=== PATIENT | female | born 1995 | race Caucasian/White ===

== ENCOUNTER → 2018-09-01 19:09 | Outpatient (CLI) | payer OTHER, SELFPAY ==
[2018-09-01 10:55] VITALS: BMI 25.5
[2018-09-01 22:02] LABS: Chlamydia Trachomatis by PCR Negative (Negative); Neisserai gonorrhoeae by PCR Negative (Negative); Probe Check PASS; Sample Adequacy Control PASS; Specimen Processing Control PASS
[2018-09-03 15:43] LABS: HPV Reflexed? NOT INDICATED
== END ==
PROVIDERS: Referring Provider Nurse Practitioner Women's Health; Visit Provider Nurse Practitioner Women's Health
DX: Z12.4 Encounter for screening for malignant neoplasm of cervix (principal); Z11.3 Encounter for screening for infections with a predominantly sexual mode of transmission
CPT/HCPCS: 87491; 87591; 87624; 88175; G0145

== ENCOUNTER → 2020-11-27 13:43 | Outpatient (CLI) | payer OTHER, SELFPAY ==
[2018-09-01 10:55] VITALS: BMI 25.5
[2020-11-29 22:11] LABS: H.Pylori Breath Test Negative (Negative)
== END ==
PROVIDERS: PCP Family Medicine; Referring Provider Family Medicine; Visit Provider Family Medicine
DX: R10.13 Epigastric pain (principal)
CPT/HCPCS: 83013

== ENCOUNTER → 2022-03-25 | Outpatient (CLI) | payer OTHER, SELFPAY ==
[2022-03-25 12:32] LABS: AST(SGOT) 14 U/L (15-37); Alanine Aminotransfer ALT/SGPT 22 U/L (13-56); Albumin, Serum 4.3 g/dL (3.2-5.0); Alkaline Phosphatase 26 U/L (45-117); Bilirubin, Direct 0.11 mg/dL (0.00-0.30); Cholesterol 115 mg/dL (200); Globulin 3.8 g/dL (2.2-4.2); High Density Lipoprotein 68 mg/dL; Protein, Total 8.1 g/dL (6.4-8.2); Triglycerides 64 mg/dL; Very Low Density Lipoprotein 13 mg/dL (5-40)
== END | disposition home or self-care (01) ==
LOC: MTLAB 10:47
PROVIDERS: PCP Family Medicine; Referring Provider Physician Assistant Medical; Visit Provider Physician Assistant Medical
DX: L70.0 Acne vulgaris (principal)
CPT/HCPCS: 36415; 80061; 80076

== ENCOUNTER → 2022-05-26 | Outpatient (CLI) | payer OTHER, SELFPAY ==
[2022-06-05 14:48] LABS: HPV Reflexed? NOT INDICATED
== END | disposition home or self-care (01) ==
LOC: LABSPEC 16:51
PROVIDERS: PCP Family Medicine; Referring Provider Nurse Practitioner Women's Health; Visit Provider Nurse Practitioner Women's Health
DX: Z12.4 Encounter for screening for malignant neoplasm of cervix (principal)
CPT/HCPCS: 88175; G0145

== ENCOUNTER → 2023-01-28 | Outpatient (CLI) | payer OTHER, SELFPAY ==
[2023-01-28 16:34] LABS: Anion Gap 6 (5-15); BUN 14 mg/dL (7-18); Chloride 106 mmol/L (98-107); Creatinine, Serum 0.88 mg/dL (0.55-1.02); EST Glomerular Filtration Rate 83 mL/min (>60); Est Glom Filt Rate - Afr Amer 101 mL/min (>60); Glucose 128 mg/dL (74-106); Potassium 3.7 mmol/L (3.5-5.1); Sodium Level 139 mmol/L (136-145); Thyroid Stim Hormone (TSH) 1.02 uIU/mL (0.358-3.74)
== END | disposition home or self-care (01) ==
LOC: LAB 14:56
PROVIDERS: PCP Family Medicine; Referring Provider Internal Medicine Cardiovascular Disease; Visit Provider Internal Medicine Cardiovascular Disease
DX: R00.0 Tachycardia, unspecified (principal)
CPT/HCPCS: 36415; 80048; 84443

== ENCOUNTER → 2023-03-10 | Outpatient (CLI) | payer OTHER, SELFPAY ==
[2023-03-10 09:23] LABS: Hematocrit 42.8 % (37-47); Mean Corp Hgb Conc 32.7 g/dL (32-36); Mean Corpuscular Hgb 28.7 pg (27.0-32.0); Mean Corpuscular Volume 87.7 fL (81-99); Mean Platelet Vol. 10.8 fl (6.2-12.0); Platelet Count 303 K/mm3 (150-450); RBC Distribution Width CV 12.3 % (11.6-14.6); RBC Distribution Width SD 39.6 fl (35.1-43.9); Red Blood Count 4.88 M/mm3 (4.2-5.4); White Blood Count 8.2 K/mm3 (4.4-11.0)
[2023-03-10 09:35] LABS: Internal QC Validated? YES +Cl - CLEAR BKGD; Pregnancy, Serum, hCG Quali. NEGATIVE Negative
[2023-03-10 09:37] LABS: Anion Gap 5 (5-15); BUN 13 mg/dL (7-18); BUN/Creat Ratio 14.6 RATIO (10-20); Calcium,Total 9.1 mg/dL (8.5-10.1); Chloride 106 mmol/L (98-107); Creatinine, Serum 0.89 mg/dL (0.55-1.02); EST Glomerular Filtration Rate 82 mL/min (>60); Est Glom Filt Rate - Afr Amer 99 mL/min (>60); Glucose 95 mg/dL (74-106); Potassium 3.7 mmol/L (3.5-5.1); Sodium Level 137 mmol/L (136-145)
--- NOTE | 2023-03-10 17:34 | TILTTABLE_ITS ---
Staff Staff: Sheila Norman Summary Pre Test Resting HR: 100 Pre Test Resting BP: 118/84 Minimum Test HR: 48 Maximum Test HR: 81 Minimum Test BP: 69/37 Maximum Test BP: 124/77 Reason for Test Termination: Dizziness Physician Tilt Table Report Patient's Physicians Primary Care Physician: Stephany Holguin Relocation Associate: Rigoberto Gerber Indications/Diagnosis: Syncope Procedure Comments: Patient was brought to the noninvasive lab in the postabsorptive nonsedated state. Initial heart rate was noted to be sinus rhythm with 100 bpm initial blood pressure was 118/84 mmHg when placed in the head upright tilt table position at 70 degrees. Continuous monitoring was performed. Approximately 5 minutes into the procedure patient's heart rate was noted to drop to a joshua of approximately 48 bpm with blood pressure dropping to 69/37 mmHg complaining of dizziness tightness in the throat and being diaphoretic. The patient was then placed in the supine position after the blood pressure improved somewhat. Patient then became less diaphoretic and warm with blood pressure improving. Summary: Abnormal tilt table test with likely vasovagal presyncopal symptoms.
[2023-03-10 17:39] VITALS: BP 118/84; BP 124/77; BP 69/37
== END | disposition home or self-care (01) ==
PROVIDERS: PCP Family Medicine; Referring Provider Internal Medicine Cardiovascular Disease; Visit Provider Internal Medicine Cardiovascular Disease
DX: R00.0 Tachycardia, unspecified (principal); R42 Dizziness and giddiness; R00.2 Palpitations
CPT/HCPCS: 36415; 80048; 84703; 85027; 93660; J7040; A4216

== ENCOUNTER 2023-10-10 12:14 | Emergency (ER) | payer OTHER, SELFPAY ==
[2023-10-10 12:15] VITALS: BP 138/90; PULSE 137; RESP 22; TEMP 36.6; O2SAT 98; BMI 27.6
--- OUTSIDE RECORDS SUMMARY | 2023-10-10 12:38 | XMS RPT_ITS | CCD ---
Author Name Unknown Address [address] [facility] [address] [place] [address] Organization [facility] Care Team Providers Care Building Service Worker Name Role Phone GWYN TERRY Admitting Unavailable HARRISONGWYN Attending Unavailable GWYN TERRY Primary Care Unavailable ERYN MENDEZNAH Consulting Unavailable PROVIDER, UNKNOWN Consulting Unavailable PROVIDER, UNKNOWN Consulting Unavailable FURFARI, MACIEJ PA-C Admitting Unavaila ble FURFARI, MACIEJ PA-C Attending Unavaila ble FURFARI, MACIEJ PA-C Primary Care Unavaila ble GENNAROEL LORENA Consulting Unavailable PROVIDER, UNKNOWN Consulting Unavailable PROVIDER, UNKNOWN Consulting Unavailable FURFARI, MACIEJ PA-C Admitting Unavaila ble FURFARI, MACIEJ PA-C Attending Unavaila ble FURFARI, MACIEJ PA-C Primary Care Unavaila ble MIEDEL, LORENA Consulting Unavailable PROVIDER, UNKNOWN Consulting Unavailable PROVIDER, UNKNOWN Consulting Unavailable FURFARI, MACIEJ PA-C Admitting Unavaila ble FURFARI, MACIEJ PA-C Attending Unavaila ble FURFARI, MACIEJ PA-C Primary Care Unavaila ble GENNAROEL LORENA Consulting Unavailable PROVIDER, UNKNOWN Consulting Unavailable PROVIDER, UNKNOWN Consulting Unavailable FURFARI, MACIEJ PA-C Admitting Unavaila ble FURFARI, MACIEJ PA-C Attending Unavaila ble FURFARI, MACIEJ PA-C Primary Care Unavaila ble MIEDEL, LORENA Consulting Unavailable PROVIDER, UNKNOWN Consulting Unavailable PROVIDER, UNKNOWN Consulting Unavailable FURFARI, MACIEJ PA-C Admitting Unavaila ble FURFARI, MACIEJ PA-C Attending Unavaila ble FURFARI, MACIEJ PA-C Primary Care Unavaila ble MIEDEL, LORENA Consulting Unavailable PROVIDER, UNKNOWN Consulting Unavailable PROVIDER, UNKNOWN Consulting Unavailable Allergies Allergy Classification Reported Allergen(s) Allergy Type Date of Onset Reaction(s) Facility (1 source) Amoxicillin / Clavulanate Drug Allergy [facility] Repository Results Test Name Value Interpretation Reference Range Facil ity Encounters Encounter Date Encounter Type Care Provider Facility Start: 12-09-2022 End: 12-09-2022 ambulatory MACIEJ PA-C [facility] Start: 11-04-2022 End: 11-04-2022 ambulatory MACIEJ PA-C [facility] Start: 10-04-2022 End: 10-04-2022 ambulatory MACIEJ PA-C [facility] Start: 07-30-2022 End: 07-30-2022 ambulatory MACIEJ PA-C [facility] Start: 07-21-2022 End: 07-21-2022 ambulatory MACIEJ PA-C [facility] Start: 02-14-2022 ambulatory GWYN TERRY [facility] Payers Date Payer Category Payer Unknown [id number] 2.16.84 [id number] 1997 Unknown [id number] 2.16.84 [id number] 1997 Unknown [id number] 2.16.84 [id number] 1997 Unknown [id number] 2.16.84 [id number] 1997 Unknown [id number] 2.16.84 [id number] 1997 Unknown [id number] .16.84 [id number] Unknown [id number] Summary Purpose Family History No Family History Records FoundNo Family History Records Found Advance Directives No Advanced Directives Records FoundNo Advanced Directives Records Found Additional Source Comments INFORMATION SOURCE (unrecogn ized section and content) DATE CREATED AUTHOR AUTHOR'S IVY ALAMO 12/09/2022 [facility] FOR RECORDS PERTAINING TO PATIENTS WHO ARE OR HAVE BEEN ENROLLED IN A CHEMICAL DEPENDENCY/SUBSTANCEABUSE PROGRAM, SOME INFORMATION MAY BE OMITTED. This clinical summary was aggregated from multiple sources. Caution should be exercised in using it in the provision of clinical care. This summary normalizes information from multiple sources, and as a consequence, information in this document may materially change the coding, format and clinical context of patient data. In addition, data may be omitted in some cases. CLINICAL DECISIONS SHOULD BE BASED ON THE PRIMARY CLINICAL RECORDS. [facility] [employer] [facility]. provides no warranty or guarantee of the accuracy or completeness of information in this document.
--- NOTE | 2023-10-10 12:54 | US_ITS ---
HISTORY: Bleeding, cramping, 5 weeks . 09/01/23. TECHNIQUE: Transvaginal pelvic ultrasound was performed. 62 images. COMPARISON: None. FINDINGS: UTERUS: 7.7 x 3.3 x 4 cm. Arcuate appearance. CERVIX: Closed. ENDOMETRIAL COMPLEX: 3 mm in thickness. No intrauterine gestational sac identified. RIGHT OVARY: 2.1 x 2.4 x 3.6 cm with small follicles. Vascular flow demonstrated. No adnexal masses. LEFT OVARY: 1.8 x 2.2 x 4 cm with small follicles. Vascular flow demonstrated. No adnexal masses. FREE FLUID: None. US/Transvaginal w/Preg US IMPRESSION: No intrauterine gestational sac identified. Recommend correlation with serial beta hCG levels and follow-up ultrasound to assess for ectopic or spontaneous miscarriage versus very early intrauterine . Electronically Signed: Yanet Lawrence MD at 13:49 EST ,
--- NOTE | 2023-10-10 12:55 | ED.VIS.FEGU ---
HPI HPI - Female History of Present Illness Chief Complaint: Vag Bld, Preg Narrative Narrative: Patient presents with vaginal bleeding and cramping. Last menstrual period was 01 September which puts her at 5 weeks and 4 days. She is G1, P0. She just started bleeding today. Some cramping. She states the bleeding is just on the heavy side of what a menstrual cycle would be. No tissue. She states is not really cramping much now. She has not been lightheaded or dizzy. I note that her initial vitals showed a pulse of 137. She states she was more emotionally scared coming in here and getting the IV. Her pulse is now normal. She looks very nontoxic. My initial concern was potential ectopic but seeing the patient reduces my concern significantly. PFSH [facility] Medical History Anxiety COVID-19 (~2020) Frequent headaches Tachycardia Home Medications sertraline 25 mg tablet (Zoloft) 25 mg PO DAILY 05/26/22 [History Last Taken Unknown] albuterol sulfate 90 mcg/actuation aerosol inhaler 2 puff inhalation Q4H PRN shortness of breath or wheezing 12/15/22 [History Last Taken Unknown] spironolactone 25 mg tablet 25 mg PO DAILY #30 tabs 03/11/23 [Rx Last Taken Unknown] promethazine 12.5 mg tablet 12.5 mg PO Q6H PRN nausea and vomiting #60 tabs 10/05/23 [Rx Last Taken Unknown] Allergy/AdvReac Type Severity Reaction Status Date / Time amoxicillin [From Augmentin] AdvReac Mild rash Verified 10/10/23 12:15 clavulanic acid AdvReac Mild rash Verified 10/10/23 12:15 [From Augmentin] Family History Mother Cancer, Onset Age: 41 cervical Grandmother Myocardial infarction Uncle Myocardial infarction Surgical History [place] teeth extracted Social History household members: spouse number of children: 0 current occupational status: employed current occupation: [employer] - [employer] Smoking Status: Never smoker alcohol intake: current alcohol intake frequency: holidays/special occasions only substance use type: does not use caffeine: Yes what type of physical activity do you participate in: walking frequency: 1-2 times per week seatbelt use: always do you feel safe at home: Yes additional social history: January 2022- Larry HERNANDEZ ROS ED Constitutional Constitutional ED: Denies chills or fever(s) Eyes Eyes: Denies change in vision Cardiovascular Cardiovascular: Denies chest pain, palpitations or racing heartbeat Respiratory/Chest Respiratory/Chest: Denies cough or dyspnea Gastrointestinal Gastrointestinal: Reports abdominal pain; Denies diarrhea, nausea or vomiting Genitourinary Genitourinary ED: Reports other Details: See history of present illness. ; Denies dysuria, hematuria or urinary frequency Musculoskeletal Musculoskeletal: Denies myalgias Integumentary Denies abscess Neurologic Neurologic: Denies headache(s) Endocrine Endocrinology: Denies polydipsia or polyuria Hematologic/Lymphatic Hematologic/Lymphatic: Denies easy bleeding or easy bruising Allergic/Immunologic Allergic/Immunologic ED: Denies urticaria EXAM Physical Exam Narrative Exam Narrative: CONSTITUTIONAL: Patient is nontoxic in appearance. The patient looks comfortable. She does not look pale or toxic. She is smiling pleasant. HEENT: No notable trauma. Mucous membranes moist. EYES: No conjunctival injection. No pallor. CARDIOVASCULAR: Regular rate currently at about 75 or 80. Regular rhythm. No notable murmur. No JVD. RESPIRATORY: No respiratory distress. Breathing is unlabored. No wheezes. No rhonchi. No rales. No pain with a deep breath. GASTROINTESTINAL: Not distended. Bowel sounds are normal. No tenderness. No guarding. No rebound. No palpable mass. No bruit. Overall her abdomen is actually quite benign GENITOURINARY: No tenderness over the bladder. No low abdomen or pelvic tenderness. No CVA tenderness. MUSCULOSKELETAL: Atraumatic. No peripheral edema. No cord. No tenderness along the deep venous system. No asymmetry. NEUROLOGICAL: Patient is alert and appropriate. No focal deficit noted. SKIN: No noted rashes. No diaphoresis. No pallor. No petechiae. PSYCHIATRIC: Patient is calm. Mood is appropriate. Const Vital Signs: 10/10/23 12:15 10/10/23 13:10 Temperature 98 F Temperature Source Temporal Pulse Rate 137 H 88 Respiratory Rate 22 H 14 Blood Pressure 138/90 H 118/77 Blood Pressure Mean 106 90 Pulse Ox 98 98 Oxygen Delivery Method Room Air Room Air MDM MDM MDM Narrative Medical decision making narrative: Repeat vitals show normal heart rate consistent with the exam. Patient's CBC is normal including hemoglobin and platelets. Patient's electrolytes are normal other than minimal elevation of chloride which is nonspecific and minimal elevation of glucose. Quantitative beta-hCG is only 59. Ultrasound showed no gestational sac. This is concerning for either miscarriage or possible ectopic. But the patient does not have symptoms findings consistent with ectopic. Dr. Benavidez called in about her. She had already looked at the ultrasound. She has a repeat quant for Thursday. Plan will be to get her home with close follow-up. Lab Data Attestation: I reviewed the patient's lab results. Labs: Laboratory Results - last 24 hr 10/10/23 13:03 WBC 10.8 RBC 4.82 Hgb 13.8 Hct 42.2 MCV 87.6 MCH 28.6 MCHC 32.7 RDW Std Deviation 41.2 RDW Coeff of Andrew 13.0 Plt Count 305 MPV 10.5 Immature Gran % (Auto) 0.200 Neut % (Auto) 72.3 H Lymph % (Auto) 21.1 [place] % (Auto) 5.5 Eos % (Auto) 0.6 Baso % (Auto) 0.3 Absolute Neuts (auto) 7.8 H Absolute Lymphs (auto) 2.27 Nucleated RBC % 0 Sodium 139 Potassium 4.1 Chloride 109 H Carbon Dioxide 25.0 Anion Gap 5 BUN 11 Creatinine 0.86 Estim Creat Clear Calc 104.26 Est GFR (MDRD) Af Amer 102 Est GFR (MDRD) Non-Af 84 BUN/Creatinine Ratio 12.7 Glucose 117 H Calcium 9.4 HCG, Quant 59 H Radiography Diagnostic Testing: Clinical Impression(s) from Imaging Studies Obstetrics Ultrasound 10/10/23 12:54 IMPRESSION: No intrauterine gestational sac identified. Recommend correlation with serial beta hCG levels and follow-up ultrasound to assess for ectopic or spontaneous miscarriage versus very early intrauterine . Electronically Signed: Yanet Lawrence MD at 13:49 EST , Discharge Plan Triage Chief Complaint: Vag Bld, Preg ED Provider: Samuel Patterson Dx/Rx/DC Orders Clinical Impression: Threatened , Vaginal bleeding Instructions: Miscarriage Threatened Prescriptions: No Action sertraline [Zoloft] 25 mg tablet 25 mg PO DAILY albuterol sulfate 90 mcg/actuation HFA aerosol inhaler 2 puff inhalation Q4H PRN (Reason: shortness of breath or wheezing) Patient Comments: INHALE 2 PUFFS BY MOUTH EVERY 4 HOURS NEEDED spironolactone 25 mg tablet 25 mg PO DAILY Qty: 30 11RF promethazine 12.5 mg tablet 12.5 mg PO Q6H PRN (Reason: nausea and vomiting) Qty: 60 2RF Primary Care Provider: Stephany Holguin Referrals: Stephany Holguin MD [Primary Care Provider] - Radha Mccloud DO [Med Staff - Active Staff] - 3-5 Days Activity Restrictions/Additional Instructions: Your doctor has ordered a repeat blood test on Thursday. Disposition Disposition: Home, Self Care
[2023-10-10 13:10] VITALS: BP 118/77; PULSE 88; RESP 14; O2SAT 98
[2023-10-10 13:15] LABS: Absolute Lymphocyte Count 2.27 X10^3/uL (0.83-4.51); Absolute Neutrophil Count 7.8 X10^3/uL (2.0-7.7); Basophil# 0.03 X10^3/uL; Basophil% 0.3 % (0-1); Eosinophil# 0.06 X10^3/uL; Eosinophils% 0.6 % (0-5); Hematocrit 42.2 % (37-47); Hemoglobin 13.8 g/dL (12.0-15.0); Lymphocyte # 2.27 X10^3/ul (0.83-4.51); Lymphocyte % 21.1 % (19-41); Mean Corp Hgb Conc 32.7 g/dL (32-36); Mean Corpuscular Hgb 28.6 pg (27.0-32.0); Mean Corpuscular Volume 87.6 fL (81-99); Mean Platelet Vol. 10.5 fl (6.2-12.0); Monocyte# 0.59 X10^3/uL; Monocyte% 5.5 % (0-10); NRBC Flagged by Analyzer 0 % (0-5); Neutrophil # 7.79 X10^3/uL (2.7-7.7); Neutrophil % 72.3 % (47-70); Platelet Count 305 K/mm3 (150-450); RBC Distribution Width SD 41.2 fl (35.1-43.9); Red Blood Count 4.82 M/mm3 (4.2-5.4); White Blood Count 10.8 K/mm3 (4.4-11.0)
[2023-10-10 13:28] LABS: Anion Gap 5 (5-15); BUN 11 mg/dL (7-18); BUN/Creat Ratio 12.7 RATIO (10-20); Calcium,Total 9.4 mg/dL (8.5-10.1); Chloride 109 mmol/L (98-107); Creatinine, Serum 0.86 mg/dL (0.55-1.02); EST Glomerular Filtration Rate 84 mL/min (>60); Est Glom Filt Rate - Afr Amer 102 mL/min (>60); Estimated Creatinine Clearance 104.26 ml/min; Glucose 117 mg/dL (74-106); Potassium 4.1 mmol/L (3.5-5.1); Sodium Level 139 mmol/L (136-145)
[2023-10-10 13:33] LABS: hCG Titer Quant., Serum 59 mIU/mL (1-3)
== END 2023-10-10 14:40 | disposition home or self-care (01) ==
PROVIDERS: Emergency Provider Emergency Medicine; PCP Family Medicine; Visit Provider Emergency Medicine
DX: O20.0 Threatened abortion (principal); R10.2 Pelvic and perineal pain; Z79.899 Other long term (current) drug therapy; Z3A.01 Less than 8 weeks gestation of pregnancy
CPT/HCPCS: 76817; 80048; 84702; 85025; 86900; 86901; 99282; A4216

== ENCOUNTER → 2023-10-12 | Outpatient (CLI) | payer OTHER, SELFPAY ==
--- OUTSIDE RECORDS SUMMARY | 2023-10-12 11:23 | XMS RPT_ITS | CCD ---
Author Name Unknown Address [address] [facility] [address] [place] [address] Organization [facility] Care Team Providers Care Supervisor Pipe Finishing Name Role Phone GWYN TERRY Admitting Unavailable [...] (1 source) Amoxicillin / Clavulanate Drug Allergy [facility] Repository Results Test Name Value Interpretation Reference Range Facil ity Encounters Encounter Date Encounter Type Care Provider Facility Start: 12-09-2022 End: 12-09-2022 ambulatory MACIEJ PA-C [facility] Start: 11-04-2022 End: 11-04-2022 ambulatory MACIEJ PA-C [facility] Start: 10-04-2022 End: 10-04-2022 ambulatory MACIEJ PA-C [facility] Start: 07-30-2022 End: 07-30-2022 ambulatory MACIEJ PA-C [facility] Start: 07-21-2022 End: 07-21-2022 ambulatory MACIEJ PA-C [facility] Start: 02-14-2022 ambulatory GWYN TERRY [facility] Payers Date Payer Category Payer Unknown [id number] 2.16.84 [id number] 1997 Unknown [id number] 2.16.84 [id number] 1997 Unknown [id number] 2.16.84 [id number] 1997 Unknown [id number] 2.16.84 [id number] 1997 Unknown [id number] 2.16.84 [id number] 1997 Unknown [id number] .16.84 [id number] Unknown [id number] Summary Purpose Family History No Family History Records FoundNo Family History Records Found Advance Directives No Advanced Directives Records FoundNo Advanced Directives Records Found Additional Source Comments INFORMATION SOURCE (unrecogn ized section and content) DATE CREATED AUTHOR AUTHOR'S IVY ALAMO 12/09/2022 [facility] FOR RECORDS PERTAINING TO PATIENTS WHO ARE [...] BE BASED ON THE PRIMARY CLINICAL RECORDS. [facility] [employer] [facility]. provides no warranty or guarantee of the accuracy or completeness of information in this document.
[2023-10-12 14:17] LABS: hCG Titer Quant., Serum 17 mIU/mL (1-3)
== END | disposition home or self-care (01) ==
LOC: LAB 11:04
PROVIDERS: PCP Family Medicine; Referring Provider Obstetrics & Gynecology; Visit Provider Obstetrics & Gynecology
DX: O20.0 Threatened abortion (principal); Z3A.00 Weeks of gestation of pregnancy not specified
CPT/HCPCS: 36415; 84702

== ENCOUNTER → 2023-10-22 | Outpatient (CLI) | payer OTHER, SELFPAY ==
[2023-10-22 17:17] LABS: hCG Titer Quant., Serum < 1 mIU/mL (1-3)
== END | disposition home or self-care (01) ==
LOC: LAB 15:49
PROVIDERS: PCP Family Medicine; Referring Provider Nurse Practitioner Women's Health; Visit Provider Nurse Practitioner Women's Health
DX: O20.0 Threatened abortion (principal); Z3A.00 Weeks of gestation of pregnancy not specified
CPT/HCPCS: 36415; 84702

== ENCOUNTER → 2024-02-25 | Outpatient (CLI) | payer OTHER, SELFPAY ==
--- NOTE | 2024-02-25 12:48 | US_ITS ---
STUDY: FIRST TRIMESTER OBSTETRICAL ULTRASOUND REASON FOR EXAM: Female, 28 years old cramping with spotting LMP: TECHNIQUE: Transvaginal TECHNICAL QUALITY: Adequate. PRIOR ULTRASOUND: None. FINDINGS: There is visualization of a single gestational sac in a normal intrauterine position. The mean sac diameter (MSD) measures 1.12 cm, indicating an estimated gestational age (EGA) of 5 weeks, 6 days. The gestational sac shape is within normal limits. There is a visualized yolk sac. The yolk sac measures 3.8 mm. The placenta is non-visualized. There is visualization of a live embryo. The crown-rump length (CRL) measures 1.8 mm, indicating an estimated gestational age (EGA) of 5 weeks, 6 days. There is demonstrated cardiac activity with a heart rate of 108 bpm. The estimated gestation age (EGA) by LMP is 6 weeks, 3 days. The estimated date of delivery (CHAPARRO) by LMP is October 17, 2024. The estimated gestation age (EGA) by US is 5 weeks, 6 days. The estimated date of delivery (CHAPARRO) by US is October 21, 2024. The uterus measures 8.1 x 5.8 x 4.1 cm. There is no demonstrated uterine fibroid. The cervix is closed. The right ovary measures 3.8 x 2.2 x 2.8 cm. There is a small cyst measuring 1.2 x 1.1 x 1 cm possibly corpus luteum There is no visualized right adnexal mass or complex lesion. Normal left ovary not visualized due to bowel gas artifact. No cystic or solid adnexal mass There is no fluid in the cul de sac. US/Transvaginal w/Preg US IMPRESSION: Viable intrauterine gestation approximately 5-6 weeks gestational age. No significant abnormality Electronically Signed: Viktor García MD at 16:08 EDT ,
== END | disposition home or self-care (01) ==
PROVIDERS: PCP Family Medicine; Referring Provider Obstetrics & Gynecology; Visit Provider Obstetrics & Gynecology
DX: O26.859 Spotting complicating pregnancy, unspecified trimester (principal); Z3A.00 Weeks of gestation of pregnancy not specified
CPT/HCPCS: 76817

== ENCOUNTER → 2024-03-31 | Outpatient (CLI) | payer OTHER, SELFPAY ==
[2024-03-31 10:48] LABS: Absolute Lymphocyte Count 1.94 X10^3/uL (0.83-4.51); Absolute Neutrophil Count 8.5 X10^3/uL (2.0-7.7); Basophil# 0.04 X10^3/uL; Basophil% 0.4 % (0-1); Eosinophil# 0.06 X10^3/uL; Eosinophils% 0.5 % (0-5); Hematocrit 39.6 % (37-47); Hemoglobin 13.2 g/dL (12.0-15.0); Lymphocyte # 1.94 X10^3/ul (0.83-4.51); Lymphocyte % 17.2 % (19-41); Mean Corp Hgb Conc 33.3 g/dL (32-36); Mean Corpuscular Hgb 28.3 pg (27.0-32.0); Mean Corpuscular Volume 84.8 fL (81-99); Mean Platelet Vol. 10.5 fl (6.2-12.0); Monocyte# 0.66 X10^3/uL; Monocyte% 5.8 % (0-10); NRBC Flagged by Analyzer 0 % (0-5); Neutrophil # 8.53 X10^3/uL (2.7-7.7); Neutrophil % 75.6 % (47-70); Platelet Count 276 K/mm3 (150-450); RBC Distribution Width CV 12.5 % (11.6-14.6); RBC Distribution Width SD 37.7 fl (35.1-43.9); Red Blood Count 4.67 M/mm3 (4.2-5.4); White Blood Count 11.3 K/mm3 (4.4-11.0)
[2024-03-31 11:54] LABS: HIV - WCH Non-Reactive (Nonreactive); Hepatitis B Surface Antigen Non-Reactive (Nonreactive); Hepatitis C Antibody Non-Reactive (Nonreactive); Rubella IgG Reactive (Nonreactive); Syphilis Antibodies Non-reactive
[2024-04-04 03:06] LABS: Chlamydia By Nucleic Acid AMP Negative (Negative); Gonococcus By Nucleic Acid AMP Negative (Negative)
== END | disposition home or self-care (01) ==
PROVIDERS: PCP Family Medicine; Referring Provider Advanced Practice Midwife; Visit Provider Advanced Practice Midwife
DX: O09.90 Supervision of high risk pregnancy, unspecified, unspecified trimester (principal); Z3A.00 Weeks of gestation of pregnancy not specified
CPT/HCPCS: 36415; 85025; 86703; 86762; 86780; 86803; 86850; 86900; 86901; 87340; 87491; 87591

== ENCOUNTER → 2024-07-22 | Outpatient (CLI) | payer OTHER, SELFPAY ==
[2024-07-22 13:12] LABS: Absolute Lymphocyte Count 1.83 X10^3/uL (0.83-4.51); Absolute Neutrophil Count 9.7 X10^3/uL (2.0-7.7); Basophil# 0.02 X10^3/uL; Basophil% 0.2 % (0-1); Eosinophil# 0.13 X10^3/uL; Hematocrit 34.9 % (37-47); Hemoglobin 11.9 g/dL (12.0-15.0); Lymphocyte # 1.83 X10^3/ul (0.83-4.51); Lymphocyte % 14.7 % (19-41); Mean Corp Hgb Conc 34.1 g/dL (32-36); Mean Corpuscular Hgb 29.2 pg (27.0-32.0); Mean Corpuscular Volume 85.7 fL (81-99); Mean Platelet Vol. 10.9 fl (6.2-12.0); Monocyte# 0.69 X10^3/uL; Monocyte% 5.5 % (0-10); NRBC Flagged by Analyzer 0 % (0-5); Neutrophil # 9.72 X10^3/uL (2.7-7.7); Neutrophil % 77.8 % (47-70); Platelet Count 286 K/mm3 (150-450); RBC Distribution Width CV 13.1 % (11.6-14.6); RBC Distribution Width SD 40.3 fl (35.1-43.9); Red Blood Count 4.07 M/mm3 (4.2-5.4); White Blood Count 12.5 K/mm3 (4.4-11.0)
[2024-07-22 13:36] LABS: Glucose Challenge Gest 1H 50g 135 mg/dL (70-140)
[2024-07-22 14:08] LABS: HIV - WCH Non-Reactive (Nonreactive); Syphilis Antibodies Non-reactive
== END | disposition home or self-care (01) ==
LOC: LAB 12:55
PROVIDERS: PCP Family Medicine; Referring Provider Obstetrics & Gynecology; Visit Provider Obstetrics & Gynecology
DX: O09.90 Supervision of high risk pregnancy, unspecified, unspecified trimester (principal); Z13.1 Encounter for screening for diabetes mellitus; Z3A.00 Weeks of gestation of pregnancy not specified
CPT/HCPCS: 36415; 82950; 85025; 86703; 86780

== ENCOUNTER → 2024-08-04 | Outpatient (CLI) | payer OTHER, SELFPAY ==
[2024-08-04 07:53] LABS: Bedside Glucose 89 mg/dL (74-106)
[2024-08-04 08:04] LABS: Glucose GTT-Gestation. Fasting 91 mg/dL (<105)
[2024-08-04 09:12] LABS: Glucose GTT-Gestational 1 Hr 165 mg/dL (<190)
[2024-08-04 10:11] LABS: Glucose GTT-Gestational 2 Hr 144 mg/dL (<165)
[2024-08-04 11:02] LABS: Glucose GTT-Gestational 3 Hr 60 L (<145)
== END | disposition home or self-care (01) ==
LOC: LAB 07:24
PROVIDERS: PCP Family Medicine; Referring Provider Registered Nurse; Visit Provider Registered Nurse
DX: O99.810 Abnormal glucose complicating pregnancy (principal); Z3A.27 27 weeks gestation of pregnancy
CPT/HCPCS: 36415; 82951; 82952; 82962

== ENCOUNTER → 2024-08-09 | Outpatient (CLI) | payer OTHER, SELFPAY ==
[2024-08-09 15:02] LABS: Absolute Neutrophil Count 14.4 X10^3/uL (2.0-7.7); Basophil# 0.05 X10^3/uL; Basophil% 0.3 % (0-1); Eosinophil# 0.19 X10^3/uL; Hematocrit 37.7 % (37-47); Hemoglobin 12.5 g/dL (12.0-15.0); Lymphocyte % 13.9 % (19-41); Mean Corp Hgb Conc 33.2 g/dL (32-36); Mean Corpuscular Hgb 28.6 pg (27.0-32.0); Mean Corpuscular Volume 86.3 fL (81-99); Mean Platelet Vol. 10.8 fl (6.2-12.0); Monocyte# 1.18 X10^3/uL; Monocyte% 6.3 % (0-10); NRBC Flagged by Analyzer 0 % (0-5); Neutrophil # 14.44 X10^3/uL (2.7-7.7); Neutrophil % 77.2 % (47-70); Platelet Count 310 K/mm3 (150-450); RBC Distribution Width CV 13.2 % (11.6-14.6); Red Blood Count 4.37 M/mm3 (4.2-5.4); White Blood Count 18.7 K/mm3 (4.4-11.0)
[2024-08-09 15:16] LABS: ALB/GLOB Ratio 0.7 RATIO (0.9-2.4); AST(SGOT) 14 U/L (15-37); Alanine Aminotransfer ALT/SGPT 25 U/L (13-56); Albumin, Serum 3.2 g/dL (3.2-5.0); Alkaline Phosphatase 51 U/L (45-117); Anion Gap 6 (5-15); BUN 13 mg/dL (7-18); BUN/Creat Ratio 19.9 RATIO (10-20); Calcium,Total 9.4 mg/dL (8.5-10.1); Chloride 107 mmol/L (98-107); Creatinine, Serum 0.65 mg/dL (0.55-1.02); EST Glomerular Filtration Rate 115 mL/min (>60); Est Glom Filt Rate - Afr Amer 140 mL/min (>60); Globulin 4.3 g/dL (2.2-4.2); Glucose 90 mg/dL (74-106); Potassium 3.8 mmol/L (3.5-5.1); Protein, Total 7.5 g/dL (6.4-8.2); Sodium Level 136 mmol/L (136-145)
[2024-08-09 15:20] LABS: Protein, Urine (Random) 11.6 mg/dL (<11.9); Protein:Creat Ratio 161 mg/g CRE (0-200)
== END | disposition home or self-care (01) ==
LOC: BWCLAB 14:23
PROVIDERS: PCP Family Medicine; Referring Provider Obstetrics & Gynecology; Visit Provider Obstetrics & Gynecology
DX: O16.3 Unspecified maternal hypertension, third trimester (principal); Z3A.00 Weeks of gestation of pregnancy not specified
CPT/HCPCS: 36415; 80053; 82570; 84156; 85025

== ENCOUNTER → 2024-09-08 | Outpatient (CLI) | payer OTHER, SELFPAY ==
[2024-09-08 11:16] LABS: Absolute Lymphocyte Count 1.81 X10^3/uL (0.83-4.51); Absolute Neutrophil Count 10.1 X10^3/uL (2.0-7.7); Basophil# 0.03 X10^3/uL; Basophil% 0.2 % (0-1); Eosinophil# 0.14 X10^3/uL; Eosinophils% 1.1 % (0-5); Hematocrit 37.7 % (37-47); Hemoglobin 12.1 g/dL (12.0-15.0); Lymphocyte # 1.81 X10^3/ul (0.83-4.51); Lymphocyte % 14.1 % (19-41); Mean Corp Hgb Conc 32.1 g/dL (32-36); Mean Corpuscular Volume 87.3 fL (81-99); Mean Platelet Vol. 11.8 fl (6.2-12.0); Monocyte# 0.71 X10^3/uL; Monocyte% 5.5 % (0-10); NRBC Flagged by Analyzer 0 % (0-5); Neutrophil # 10.06 X10^3/uL (2.7-7.7); Neutrophil % 78.3 % (47-70); Platelet Count 278 K/mm3 (150-450); RBC Distribution Width CV 13.2 % (11.6-14.6); RBC Distribution Width SD 41.1 fl (35.1-43.9); Red Blood Count 4.32 M/mm3 (4.2-5.4); White Blood Count 12.9 K/mm3 (4.4-11.0)
[2024-09-08 11:19] LABS: Protein, Urine (Random) 19.6 mg/dL (<11.9); Protein:Creat Ratio 202 mg/g CRE (0-200)
[2024-09-08 11:24] LABS: ALB/GLOB Ratio 0.7 RATIO (0.9-2.4); AST(SGOT) 7 U/L (15-37); Alanine Aminotransfer ALT/SGPT 21 U/L (13-56); Albumin, Serum 2.8 g/dL (3.2-5.0); Alkaline Phosphatase 75 U/L (45-117); Anion Gap 7 (5-15); BUN 11 mg/dL (7-18); Calcium,Total 9.4 mg/dL (8.5-10.1); Chloride 106 mmol/L (98-107); Creatinine, Serum 0.65 mg/dL (0.55-1.02); EST Glomerular Filtration Rate 117 mL/min (>60); Est Glom Filt Rate - Afr Amer 141 mL/min (>60); Globulin 4.2 g/dL (2.2-4.2); Glucose 122 mg/dL (74-106); Potassium 3.6 mmol/L (3.5-5.1); Sodium Level 138 mmol/L (136-145)
== END | disposition home or self-care (01) ==
LOC: BWCLAB 08:58
PROVIDERS: PCP Family Medicine; Referring Provider Nurse Practitioner Women's Health; Visit Provider Nurse Practitioner Women's Health
DX: O16.3 Unspecified maternal hypertension, third trimester (principal); Z3A.00 Weeks of gestation of pregnancy not specified
CPT/HCPCS: 36415; 80053; 82570; 84156; 85025

== ENCOUNTER → 2024-09-20 | Outpatient (CLI) | payer OTHER, SELFPAY | END | disposition home or self-care (01) | LOC: LABSPEC 15:34 | PROVIDERS: PCP Family Medicine; Referring Provider Obstetrics & Gynecology; Visit Provider Obstetrics & Gynecology | DX: O09.93 Supervision of high risk pregnancy, unspecified, third trimester (principal); Z3A.00 Weeks of gestation of pregnancy not specified | CPT/HCPCS: 87081 ==

== ENCOUNTER → 2024-09-22 | Outpatient (CLI) | payer OTHER, SELFPAY ==
--- NOTE | 2024-09-22 12:35 | US_ITS ---
HISTORY: small for gestational age/ growth. TECHNIQUE: Transabdominal pelvic ultrasound was performed. 49 images. COMPARISON: 02/25/2024. FINDINGS: INTRAUTERINE GESTATION(s): Single. PRESENTATION: Cephalic. HEART MOTION: 133 bpm. PLACENTA: Posterior, grade one. Limited evaluation due to positioning and location. CERVIX: Not well visualized. AMNIOTIC FLUID INDEX (EULALIO): 14.4 cm. Maximum vertical pocket 5.3 biometry- BIPARIETAL DIAMETER: 8.8 cm, corresponding to 35 weeks 5 days. HEAD CIRCUMFERENCE: 32 cm, corresponding to 36 weeks 0 days. ABDOMINAL CIRCUMFERENCE: 32.8 cm, corresponding to 36 weeks 5 days. FEMUR LENGTH: 7 cm, corresponding to 36 weeks 0 days. ESTIMATED GESTATIONAL AGE: 35 weeks 6 days. ESTIMATED DUE DATE (CHAPARRO): 10/21/2024. ESTIMATED WEIGHT: 2938 g corresponding to 53rd percentile. US/OB Limited With Biometrics IMPRESSION: Single living intrauterine with an estimated gestational age of 35 weeks 6 days. Electronically Signed: Yanet Lawrence MD at 13:12 EST ,
== END | disposition home or self-care (01) ==
PROVIDERS: PCP Family Medicine; Referring Provider Obstetrics & Gynecology; Visit Provider Obstetrics & Gynecology
DX: O26.843 Uterine size-date discrepancy, third trimester (principal); Z3A.36 36 weeks gestation of pregnancy
CPT/HCPCS: 76816

== ENCOUNTER 2024-10-24 02:10 | Inpatient (IN) | payer OTHER, SELFPAY ==
[2024-10-24] VITALS (43 sets, daily range): BP systolic 88–148; BP diastolic 59–104; PULSE 70–130; RESP 14–17; TEMP 36.1–36.9; O2SAT 97–98; BMI 34.4
[2024-10-24] MEDS: 0.9% Saline Lock 10 ML Syringe IV ×3 (02:39→12:38)
[2024-10-24 02:41] LABS: Absolute Lymphocyte Count 1.83 X10^3/uL (0.83-4.51); Basophil# 0.06 X10^3/uL; Basophil% 0.3 % (0-1); Eosinophil# 0.06 X10^3/uL; Eosinophils% 0.3 % (0-5); Hematocrit 38.8 % (37-47); Lymphocyte # 1.83 X10^3/ul (0.83-4.51); Lymphocyte % 8.2 % (19-41); Mean Corp Hgb Conc 33.5 g/dL (32-36); Mean Corpuscular Hgb 28.4 pg (27.0-32.0); Mean Corpuscular Volume 84.7 fL (81-99); Mean Platelet Vol. 11.6 fl (6.2-12.0); Monocyte# 1.22 X10^3/uL; Monocyte% 5.5 % (0-10); NRBC Flagged by Analyzer 0 % (0-5); Neutrophil # 18.99 X10^3/uL (2.7-7.7); Platelet Count 245 K/mm3 (150-450); RBC Distribution Width CV 14.2 % (11.6-14.6); RBC Distribution Width SD 43.8 fl (35.1-43.9); Red Blood Count 4.58 M/mm3 (4.2-5.4); White Blood Count 22.3 K/mm3 (4.4-11.0)
[2024-10-24 03:17] LABS: Syphilis Antibodies Non-reactive
[2024-10-24 07:02] LABS: ROM Internal Control Test YES-OK TO RESULT pt. (Internal QC)
[2024-10-24 07:03] LABS: ROM Patient Test POSITIVE (Negative); Record Kit Lot#, ROM+ K2871
--- NOTE | 2024-10-24 07:06 | HP.PCM.OB_ITS ---
HPI - General General Date of Admission: 10/24/24 Date of Service: 10/24/24 HPI Narrative IRMA TEJADA, is a 29 F who presents to unit in active labor. 41.0 weeks. desires unmedicated Maternal Data Information CHAPARRO Calculator Estimated Delivery Date Method Current WG Current Estimate 10/17/24 Ultrasound #1 41w 0d Other Estimates 10/17/24 LMP (Certain) 41w 0d Final CHAPARRO: 10/17/24 Final CHAPARRO Source: US >20 weeks Gestational age: 41.0 PFSH PFSH Medical History (Updated 10/24/24 @ 07:08 by Christina Jimenes CNM) Depression Spontaneous Frequent headaches Tachycardia COVID-19 (~2020) Anxiety Home Medications ?Medication ?Instructions ?Recorded ?Last Taken ?Type multivitamin no.47-iron fum 27 1 cap PO DAILY pregnanc y 03/22/24 10/23/24 20:00 History mg-folate no.1 1 mg-dha 300 mg 1 cap capsule (PNV-DHA) promethazine 12.5 mg tablet 12.5 mg PO Q6H PRN pregnan cy 03/31/24 Unknown History sertraline 25 mg tablet (Zoloft) 25 mg PO DAILY anxiet y #30 tabs 10/10/24 10/23/24 20:00 Rx 25 mg choline 500 mg tablet 500 mg PO DAILY 10/23/24 20:00 History 500 mg omega 7-olw-rwu-fish oil 300 1 cap PO DAILY 10/24/24 10/23/24 20:00 History mg-1,000 mg capsule (Fish Oil) 1 cap Allergy/AdvReac Type Severity Reaction Status Date / Time amoxicillin (From Augmentin) AdvReac Mild rash Verified 10/24/24 01:44 clavulanic acid (From AdvReac Mild rash Verified 10/24/24 01:44 Augmentin) Family History Mother Cancer, Onset Age: 41 cervical Grandmother Myocardial infarction Uncle Myocardial infarction Brother , ended own life No problems noted. 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 pets and animals: Yes (Avoid litterbox) pets and animals: cat(s) and dog(s) history of recent travel: No sexually active: Yes Smoking Status: Never smoker alcohol intake: current alcohol intake frequency: holidays/special occasions only details: Not while substance use type: does not use well-balanced diet: daily or most days caffeine: Yes (occasional) Type: carbonated beverages and coffee eating out: 1-3 times/week during the past year weight has: remained stable what type of physical activity do you participate in: walking frequency: 1-2 times per week cielo/caodaism: Mormon seatbelt use: always do you feel safe at home: Yes additional social history: January 2022- Larry History 2 Elective abortions Hx Para 0 Spontaneous abortions 1 Hx # Term Pregnancies Ectopic pregnancies Hx # Pregnancies Multiple births # of living children 0 Past Pregnancies Del. Date Name GA/Weeks Outcome Route Bth Weight Infant Gen Labor Lgth Anesthesia Del Locatn Provider FOB 10/03/23 spontaneous Visit Details Expected Delivery Route/Plan Labor Preferences- CB/BF classes: no labor support person: Larry labor intervention preferences: [] pain management options preferred: epidural if requested cut cord/dad catch: yes : yes PP control planned: discussed discussed possible routes of delivery and associated risks: [] special requests: [] Plans Covid status: [] Flu vaccine: declines Tdap vaccine: [] Rhogam: na LARC form signed: yes Problem list reviewed and updated with the most current plan of care details and appropriate orders placed. Relevant counseling for the gestational age provided. Continue routine care and follow up unless otherwise noted in visit notes/problem list details OB Flowsheet Initial Weight: 169 lb 3.2 oz Date -?-?-?-?-?-?-?-?-?-?-?-?- EGA Weight BP Urine Prot -?-?-?-?-?-?-?-?-?-?-?-?- Glucose FHR FuHt Pres Dilation -?-?-?-?-?-?-?-?-?-?-?-?- Effaced St Visit Note 03/31/24 -?-?-?-?-?-?-?-?-?-?-?-?- 11w 3d 169 lb 3.2 oz (+0 oz) 133/87 -?-?-?-?-?-?-?-?-?-?-?-?- 163 -?-?-?-?-?-?-?-?-?-?--?-?- KW-42mm, Cons wi th dates. Declines NIPT at this time. Brother recently-suicide. seeing counselor for this. 04/28/24 -?-?-?-?-?-?-?-?-?-?-?-?- 15w 3d 169 lb 8 oz (+4.8 oz) 132/85 Negative -?-?-?-?-?-?-?-?-?-?-?-?- Negative 150 -?-?-?-?-?-?-?-?-?-?-?-?- KW- work in for . no vb/cramping. requesting to start zoloft. struggling with loss of her brother. does see counselor. 05/31/24 -?-?-?-?-?-?-?-?-?-?-?-?- 20w 1d 173 lb 4 oz (+4 lb 0.8 oz) 126/84 Negative -?-?-?-?-?-?-?-?-?-?-?-?- Negative 137 -?-?-?-?-?-?-?-?-?-?-?-?- JV- doing better since starting zoloft. (brother's autopsy came back last week an confirmed suicide) anatomy done today, results pending. 06/20/24 -?-?-?-?-?-?-?-?-?-?-?-?- 23w 0d 176 lb 8 oz (+7 lb 4.8 oz) 123/87 Negative -?-?-?-?-?-?-?-?-?-?-?-?- Negative 163 -?-?-?-?-?-?-?-?-?-?-?-?- JV- no lof, vagi nal bleeding, or dec fm. no complaints. doing well. family is stable but worried about the upcoming holidays since her brother's . GCT next visit. she declines flu shot. 07/22/24 -?-?-?-?-?-?-?-?-?-?-?-?- 27w 4d 188 lb 8 oz (+19 lb 4.8 oz) 126/80 Negative -?-?-?-?-?-?-?-?-?-?-?-?- Negative 151 28 -?-?-?-?-?-?-?-?-?-?-?-?- LC-no vb/ctx/lof . good fm. glucose 135. will obtain 3 hour. 08/09/24 -?-?-?-?-?-?-?-?-?-?-?-?- 30w 1d 197 lb (+27 lb 12.8 oz) 141/91 133/97 121/82 Negative -?-?-?-?-?-?-?-?-?-?-?-?- Negative 150 30 -?-?-?-?-?-?-?-?-?-?-?-?- SM- no vb lof go od fm no regular ctx SM- no vb lof good fm no reg ular ctx. checking serial bps and nst, stat labs here in office to triage. SM- no vb lof good fm no reg ular ctx. checking serial bps and nst, stat labs here in office to triage. repeat bps WNL. reactive nst 08/22/24 -?-?-?-?-?-?-?-?-?-?-?-?- 32w 0d 202 lb (+32 lb 12.8 oz) 116/81 Negative -?-?-?-?-?-?-?-?-?-?-?-?- Negative 150 32 -?-?-?-?-?-?-?-?-?-?-?-?- KW- no vb/lof/ct x. good fm. starting to feel increase in depressive sx around the holidays and is concerned for PP. discussed different treatment options and will consider. 09/08/24 -?-?-?-?-?-?-?-?-?-?-?-?- 34w 3d 206 lb 8 oz (+37 lb 4.8 oz) 140/90 134/86 Negative -?-?-?-?-?-?-?-?-?-?-?-?- Negative 158 33 -?-?-?-?-?-?-?-?-?-?-?-?- MH-No VB, LOF. G ood FM. Still with congestion/cough BP elevated upon arrival. Denies H/A vi asif changes. Will check pre E labs. 09/20/24 -?-?-?-?-?-?-?-?-?-?-?-?- 36w 1d 205 lb 6 oz (+36 lb 2.8 oz) 128/86 Negative -?-?-?-?-?-?-?-?-?-?-?-?- Negative 145 34 Cephalic 0 -?-?-?-?-?-?-?-?-?-?-?-?- -3 JV- GBS collected. ultrasound ordered for size/dates discrepancy. cephalic on bedside scan. 09/28/24 -?-?-?-?-?-?-?-?-?-?-?-?- 37w 2d 210 lb 8 oz (+41 lb 4.8 oz) 121/86 Negative -?-?-?-?-?-?-?-?-?-?-?-?- Negative 147 36 Cephalic 0 .5 -?-?-?-?-?-?-?-?-?-?-?-?- JV- gbs neg. no complaints today. growth scan was normal (58th%) will discuss possible IOL next visit if pressure elevated again. so far looks normal. 10/06/24 -?-?-?-?-?-?-?-?-?-?-?-?- 38w 3d 213 lb 4 oz (+44 lb 0.8 oz) 135/87 Negative -?-?-?-?-?-?-?-?-?-?-?-?- Negative 130 37 Cephalic 1 -?-?-?-?-?-?-?-?-?-?-?-?- 70 -3 KW- no vb/ lof/ctx. good fm. FMLA paper to triage. preferences reviewed 10/12/24 -?-?-?-?-?-?-?-?-?-?-?-?- 39w 2d 211 lb (+41 lb 12.8 oz) 128/90 Trace -?-?-?-?-?-?-?-?-?-?-?-?- Negative 135 38 Cephalic 2 -?-?-?-?-?-?-?-?-?-?-?-?- 70 -2 KW- no vb/ lof. some irregular ctx. thinks she lost mucus plug yesterday and noticing loose stools. 10/19/24 -?-?-?-?-?-?-?-?-?-?-?-?- 40w 2d 214 lb (+44 lb 12.8 oz) 132/87 Negative -?-?-?-?-?-?-?-?-?-?-?-?- Negative 140 39 Cephalic 3 -?-?-?-?-?-?-?-?-?-?-?-?- 80 -1 KW- no vb/ lof/ctx. good fm. RTO on thursday on thursday for sweep. IOL for thursday10/21/24 -?-?-?-?-?-?-?-?-?-?-?-?- 40w 4d 216 lb (+46 lb 12.8 oz) 137/88 Negative -?-?-?-?-?-?-?-?-?-?-?-?- Negative 135 38 Cephalic 3 -?-?-?-?-?-?-?-?-?-?-?-?- 80 -1 KW- no vb/ lof/ctx. good fm. membrane sweep and IOL for thursday NST FHR Rate Baby A Baseline: 145 Variability:: Moderate Accelerations:: 15 x 15 Decelerations:: None NST Reactive:: Yes FHR Category:: Category I Uterine Activity:: 2-4 minutes ROS Constitutional Constitutional: Denies change in weight, fatigue, fever(s), headache(s), poor appetite or weakness Eyes Eyes: Denies blurry vision, change in vision, floaters, seeing flashes or spots in vision ENT HEENT: Denies dizziness, headache(s), loss taste/smell or sore throat Cardiovascular Cardiovascular: Denies chest pain, dizziness, dyspnea, irregular heart rhythm, lightheadedness, palpitations or rapid heart rate Respiratory/Chest Respiratory/Chest: Denies change in mental status, chest tightness, cough, dyspnea or breast pain Gastrointestinal Gastrointestinal: Denies anorexia, chewing difficulty, constipation, diarrhea or weight changes Genitourinary Genitourinary: Denies difficulty urinating, dysuria, flank pain, genital pain, urinary frequency or urinary urgency Musculoskeletal Musculoskeletal: Denies back pain, difficulty walking, extremity pain, joint pain, muscle cramps or muscle weakness Integumentary Integumentary: Denies lesions or unusual bruising Neurologic Neurologic: Denies abnormal movements, abnormal speech, dizziness, numbness, seizure-like activity, syncope or weakness Psychiatric Psychiatric: Denies behavioral changes, change in appetite, confusion, depression, homicidal ideation, suicidal ideation or suicidal thoughts Endocrine Endocrinology: Denies excessive sweating, polydipsia or polyuria Hematologic/Lymphatic Hematologic/Lymphatic: Denies anemia Allergic/Immunologic Allergic/Immunologic: Denies itchy eyes, lip swelling, throat swelling, tongue swelling or wheezing Vital Signs Vital Signs Vital Signs: 10/24/24 01:36 10/24/24 01:36 10/24/24 01:36 Temperature Temperature Source Temporal Pulse Rate 118 H Respiratory Rate Blood Pressure 142/97 H BP Systolic 142 BP Diastolic 97 Pulse Ox 10/24/24 01:36 10/24/24 01:36 10/24/24 01:37 Temperature 98.5 F Temperature Source Pulse Rate 116 H Respiratory Rate 16 Blood Pressure BP Systolic BP Diastolic Pulse Ox 10/24/24 01:37 10/24/24 02:16 10/24/24 02:16 Temperature Temperature Source Pulse Rate 111 H Respiratory Rate Blood Pressure 137/81 H BP Systolic 137 BP Diastolic 81 Pulse Ox 97 10/24/24 03:15 10/24/24 03:15 10/24/24 03:47 Temperature Temperature Source Pulse Rate 70 112 H Respiratory Rate 16 Blood Pressure BP Systolic BP Diastolic Pulse Ox 10/24/24 03:47 10/24/24 03:52 10/24/24 03:52 Temperature Temperature Source Pulse Rate 111 H Respiratory Rate Blood Pressure BP Systolic BP Diastolic Pulse Ox 97 97 10/24/24 04:20 10/24/24 04:50 10/24/24 05:20 Temperature Temperature Source Pulse Rate 100 130 H 110 H Respiratory Rate Blood Pressure BP Systolic BP Diastolic Pulse Ox 10/24/24 05:50 10/24/24 06:20 10/24/24 06:40 Temperature Temperature Source Pulse Rate 110 H 110 H Respiratory Rate Blood Pressure 144/104 H BP Systolic 144 BP Diastolic 104 Pulse Ox 10/24/24 06:40 10/24/24 06:40 10/24/24 06:41 Temperature Temperature Source Temporal Pulse Rate 121 H Respiratory Rate Blood Pressure BP Systolic BP Diastolic Pulse Ox 98 10/24/24 06:41 10/24/24 06:41 10/24/24 06:42 Temperature 97.2 F L Temperature Source Pulse Rate Respiratory Rate 16 Blood Pressure 148/102 H BP Systolic 148 BP Diastolic 102 Pulse Ox 10/24/24 06:42 10/24/24 06:44 10/24/24 06:44 Temperature Temperature Source Pulse Rate 125 H 114 H Respiratory Rate Blood Pressure 146/96 H BP Systolic 146 BP Diastolic 96 Pulse Ox Weight Weight: 213 lb 6 oz Body Mass Index (BMI) 34.4 Physical Exam Const alert, oriented x3 and no apparent distress General Appearance: cooperative Orientation / Consciousness: awake HEENT normocephalic Neck full ROM Lymph Lymphatic: no lymphadenopathy noted Chest inspection of chest normal Resp normal respiratory effort and normal air movement Effort and Inspection: able to speak in complete sentences and symmetric chest movement GI soft to palpation and non-tender Inspection: gravid Palpation: soft; Negative for tender external exam normal Back/Spine normal to inspection Extremity normal to inspection and full ROM Skin no rashes or lesions noted Psych mental status grossly normal Appearance: grossly normal Speech: normal speech Labs Labs Labs: Blood Type B POSITIVE Antibody Screen NEGATIVE Hct 38.8 % (37-47) Hgb 13.0 g/dL (12.0-15.0) Obstetrics Ultrasound Syphilis Total Ab Non-reactive Rubella IgG Antibody Reactive (Nonreactive) Hep Bs Antigen Non-Reactive (Nonreactive) Hepatitis C Antibody Non-Reactive (Nonreactive) Chlamydia DNA (EVIE) Negative (Negative) N.gonorrhoeae DNA (EVIE) Negative (Negative) HIV 1&2 Antibody Non-Reactive (Nonreactive) Glucose 1 Hr 50 gm 135 mg/dL (70-140) Gest Glucose Tolerance MG/DL Assessment & Plan (1) Active labor: PLAN: Patient presents IAL, plan expectant management for , pitocin/AROM PRN if needed. Pain management: plans no epidural. GBS neg. Management of any complications: none I have reviewed the [facility] and made any clinically relevant updates. Dr Perez aware of admission, assessment and plan. agrees with above (2) Uterine size date discrepancy: (3) High blood pressure affecting in third trimester, antepartum: COMMENT: nl labs 08/09/24 09/08/24: pre E labs:nl (4) Abnormal glucose in , antepartum: COMMENT: nl 3 hour gtt (5) Feeling grief: COMMENT: Brother committed suicide recent, loss of first 10/2023 (6) POTS (postural orthostatic tachycardia syndrome): COMMENT: failed tilt table test (7) History of miscarriage, currently : COMMENT: 10/2023 (8) Supervision of high-risk : QUALIFIERS: Trimester: third trimester Qualified Code(s): O09.93 - Supervision of high risk , unspecified, third trimester COMMENT: PRR, , CHAPARRO 10/17/24, Larry (9) : QUALIFIERS: Weeks of gestation: 40 weeks Qualified Code(s): Z3A.40 - 40 weeks gestation of COMMENT: GBS neg, discussed genetic & carrier testing-undecided. nl anatomy Charges/Coding Multi Select Codes Urinary/Genital Urinary/Genital CPT Codes: No Charge
--- NOTE | 2024-10-24 07:09 | PN_ITS ---
Progress Note Coping well with contractions current tracing: FHT: 145 Moderate variability reactive no decelerations category I tracing [place]: 2-3 Contractions Membranes:forebag ruptured for clear SVE:/0 A/P: Continue with position changes Titrate pitocin per protocol Epidural per anesthesia GBS neg Anticipate Dr Perez aware of above assessment and agrees with plan of care Assessment & Plan Assessment/Plan (1) Active labor: (2) Uterine size date discrepancy: (3) High blood pressure affecting in third trimester, antepartum: (4) Abnormal glucose in , antepartum: (5) Feeling grief: (6) POTS (postural orthostatic tachycardia syndrome): (7) History of miscarriage, currently : (8) Supervision of high-risk : QUALIFIERS: Trimester: third trimester Qualified Code(s): O09.93 - Supervision of high risk , unspecified, third trimester (9) : QUALIFIERS: Weeks of gestation: 40 weeks Qualified Code(s): Z3A.40 - 40 weeks gestation of Multi Select Codes Urinary/Genital Urinary/Genital CPT Codes: No Charge
[2024-10-24] MEDS: Oxytocin 15 Units/NS 250ml 15 UNITS/250 ML IV.SOLN IV (08:27)
[2024-10-24 08:40] LABS: ALB/GLOB Ratio 0.6 RATIO (0.9-2.4); AST(SGOT) 13 U/L (15-37); Alanine Aminotransfer ALT/SGPT 21 U/L (13-56); Alkaline Phosphatase 128 U/L (45-117); Anion Gap 11 (5-15); BUN 10 mg/dL (7-18); BUN/Creat Ratio 15.6 RATIO (10-20); Calcium,Total 9.9 mg/dL (8.5-10.1); Chloride 104 mmol/L (98-107); Creatinine, Serum 0.64 mg/dL (0.55-1.02); EST Glomerular Filtration Rate 118 mL/min (>60); Est Glom Filt Rate - Afr Amer 142 mL/min (>60); Estimated Creatinine Clearance 154.86 ml/min; Globulin 4.8 g/dL (2.2-4.2); Glucose 99 mg/dL (74-106); Potassium 3.9 mmol/L (3.5-5.1); Protein, Total 7.8 g/dL (6.4-8.2); Sodium Level 136 mmol/L (136-145)
[2024-10-24] MEDS: Morphine 2 MG/ML Syringe IV (09:40)
[2024-10-24] MEDS: Oxytocin 15 Units/NS 250ml 15 UNITS/250 ML IV.SOLN 83 UNITS IV (09:42)
[2024-10-24] MEDS: Lidocaine 1% (20 ml mdv) 20 ML Vial INFILT ×2 (09:45→10:00)
--- NOTE | 2024-10-24 10:21 | PCM.OP.PRO2 ---
Problems Associated Problem List Diagnoses (1) Third degree laceration of perineum during delivery, : Multi Select Codes Urinary/Genital Urinary/Genital CPT Codes: 23400 Episiotomy or vaginal repair(non-delivery) Non-invasive Procedural Procedure Information Date of Procedure: 10/24/24 Pre-Procedure Diagnosis: 3rd degree perineal laceration following spontaneous vaginal delivery Post-Procedure Diagnosis: 3rd degree perineal laceration following spontaneous vaginal delivery Procedure Performed:: repair of 3rd degree perineal laceration anvil worker: No Special Medications: 2 mg of morphine and 13cc of lidocaine Description of procedure: The patient was in the lithotomy position. She was packed with 4x4 gauze. The gauze was removed and rectal exam was performed under sterile technique and she was noted to have a tear that extended to the muscle surrounding th anal sphincter but no tear in the actual anal sphincter. The tissue was injected with 10 cc of 1% lidocaine plain solution. The edges of the torn muscle were first identified and reapproximated with a 2-0 vicryl while keeping one finger in the rectum to prevent the needle from passing into the sphincter. After the knot was tied and several uninterrupted throws of the suture was performed, the finger was removed from the rectum and gloves were changed. The suture was tied and cut. Another 3 cc of lidocaine was injected for the patient's comfort into the vaginal mucosa and a second 2-0 vicryl was used to repair the 2nd degree laceration in the usual sterile fasion. Procedure findings: 3rd degree perineal laceration Complications Complications: No
[2024-10-24] MEDS: Doxycycline 100 MG CAPSULE PO (11:24)
[2024-10-24] MEDS: Ibuprofen 600 MG Tablet PO ×2 (11:50→17:52)
--- NOTE | 2024-10-24 12:28 | OB.VAGDELI_ITS ---
Assessment & Plan (1) Vaginal delivery: COMMENT: KW IAL 41.0 Boy (2) Active labor: (3) Uterine size date discrepancy: (4) High blood pressure affecting in third trimester, antepartum: COMMENT: nl labs 08/09/24 09/08/24: pre E labs:nl (5) Abnormal glucose in , antepartum: COMMENT: nl 3 hour gtt (6) Feeling grief: COMMENT: Brother committed suicide recent, loss of first 10/2023 (7) POTS (postural orthostatic tachycardia syndrome): COMMENT: failed tilt table test (8) History of miscarriage, currently : COMMENT: 10/2023 (9) Supervision of high-risk : QUALIFIERS: Trimester: third trimester Qualified Code(s): O09.93 - Supervision of high risk , unspecified, third trimester COMMENT: PRR, , CHAPARRO 10/17/24, Larry (10) : QUALIFIERS: Weeks of gestation: 40 weeks Qualified Code(s): Z3A.40 - 40 weeks gestation of COMMENT: GBS neg, discussed genetic & carrier testing-undecided. nl anatomy (11) Third degree laceration of perineum during delivery, : COMMENT: repaired by JV Maternal Data Information CHAPARRO Calculator Estimated Delivery Date Method Current WG Current Estimate 10/17/24 Ultrasound #1 41w 0d Other Estimates 10/17/24 LMP (Certain) 41w 0d Vaginal Delivery Maternal Presentation Maternal Presentation: Active Labor Maternal Presentation: Presented to unit for active labor at 41.0 weeks Vaginal Delivery Information Procedure Performed: Spontaneous Vaginal Delivery Surgeon/Practitioner: Christina Jimenes Date of Procedure: 10/24/24 Pre-Procedure Diagnosis: see problem list Post-Procedure Diagnosis: same Type of anesthesia: None Estimated Blood Loss: 300cc Time of Delivery: 09:04 Findings Description of procedure: Progressed well to 10cm dilated and made steady progress with effective maternal pushing. Delivered the head in OP presentation. The head was delivered atraumatically and a loose nuchal cord was identified and infant delivered through. The anterior and posterior shoulders delivered without complication followed by the rest of the infant and the infant was placed on the maternal abdomen. Delayed cord clamping was employed for approximately 3 minutes. Cord was clamped and cut and gentle traction was applied to the cord and the placenta delivered spontaneously. Immediately following, it was noted to be intact with a 3 vessel cord. Uterine bleeding stable. The perineum and vagina were inspected and noted to have a third degree laceration which was repaired by Dr Bagley. EBL was 300. Patient and tolerated delivery well. Apgars 8/9. Dr Bagley and Dr Perez notified of vaginal delivery and orders reviewed. Physician agrees with current plan of care. 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
--- NOTE | 2024-10-24 12:34 | DCINST_ITS ---
Discharge Instructions Diet Discharge Diet: No restrictions DC O2, CPAP, BIPAP needs Home O2 Discharge instructions: No Dressing / Incision Discharge Activity: Return to Normal Activity May resume sexual activity in: 6-8 weeks Dressing / Incision Call your doctor if you observe: Fever of 101 or Higher, Coldness, Increased Pain, Numbness or Tingling, Change in Color, Inability to urinate, Inability to have a bowel movement, Using more than 1 pad per hour, Shortness of breath, Dizziness, Fainting spells, Swelling in the ankles, Chest pain, Increased p alpitations (irregular heartbeat), Calf discomfort and Uncontrolled pain Follow Up Care Please Follow Up With: Christina Jimenes CNM When: Please call the office to schedule your follow up appointment in 6 weeks. If you had high blood pressure please call to schedule an appointment in 2 weeks. Test Results: Test results from this visit will be discussed in further detail at your follow- up appointment, if applicable. Discharge Plan Admission Admit Date/Time: 10/24/24 02:10 Attending Provider: Christina Jimenes Primary Care Provider: Stephany Holguin Discharge Orders/Prescriptions Prescriptions: No Action PNV-DHA 27 mg iron-1 mg -300 mg capsule 1 cap PO DAILY promethazine 12.5 mg tablet 12.5 mg PO Q6H PRN (Reason: ) omega 5-ywv-mix-fish oil [Fish Oil] 300-1,000 mg capsule 1 cap PO DAILY choline 500 mg tablet 500 mg PO DAILY sertraline [Zoloft] 25 mg tablet 25 mg PO DAILY Qty: 30 2RF Referrals / Follow Up: Stephany Holguin MD [Primary Care Provider] -
[2024-10-24] MEDS: Hydrocortisone 2.5% Crm 1 APPLIC TOPICAL (13:16)
[2024-10-24] MEDS: Benzocaine/Lanolin/Aloe Vera 85 GM Spray 1 SPRAY TOPICAL (13:17)
[2024-10-24] MEDS: Senna/Docusate Sodium 1 Tablet PO (13:17)
[2024-10-24] MEDS: Acetaminophen 500 MG Tablet 1000 MG PO (20:04)
[2024-10-25 04:19] VITALS: PULSE 91; O2SAT 100
[2024-10-25 04:20] VITALS: BP 112/71; PULSE 84; PULSE 87; RESP 14; TEMP 36.1; O2SAT 98
[2024-10-25] MEDS: Ibuprofen 600 MG Tablet PO ×2 (04:25→10:17)
[2024-10-25] MEDS: Acetaminophen 500 MG Tablet 1000 MG PO (08:15)
[2024-10-25] MEDS: Senna/Docusate Sodium 1 Tablet PO (08:18)
[2024-10-25 08:20] VITALS: BP 115/75; PULSE 100; RESP 16; TEMP 36.9
[2024-10-25 08:21] VITALS: BP 115/75; PULSE 100
--- NOTE | 2024-10-25 08:53 | PCM.PN.OB ---
Subjective Subjective Patient doing well without complaints. Tolerating PO. Ambulating and voiding without difficulty. feeding well. Denies chest pain, shortness of breath, calf pain/swelling, fevers, chills, lightheadedness. Objective Data Objective Data Vital Signs: Vital Signs Temp Pulse Resp BP Pulse Ox O2 Del Method 97.0 F L 100 14 115/75 98 Room Air 10/25/24 04:20 10/25/24 08:21 10/25/24 04:20 10/25/24 08:21 10/25/24 04:20 10/25/24 04:20 Oxygen Delivery Method Room Air Weight: 213 lb 6 oz Body Mass Index (BMI) 34.4 Intake & Output: Intake and Output for Last 24 Hours 10/23/24 10/24/24 10/25/24 23:59 23:59 23:59 Intake Total 418.0 / 418.0 Output Total 900 / 900 Balance -482.0 / -482.0 Lab / Micro Data 10/24/24 02:25 10/24/24 02:25 ROS Constitutional Constitutional: Reports systems reviewed and no addt'l complaints, except as documented Cardiovascular Cardiovascular: Reports systems reviewed and no addt'l complaints, except as documented Respiratory/Chest Respiratory/Chest: Reports systems reviewed and no addt'l complaints, except as documented Gastrointestinal Gastrointestinal: Reports systems reviewed and no addt'l complaints, except as documented Physical Exam Const alert, oriented x3 and no apparent distress HEENT Head and Scalp: atraumatic Resp normal respiratory effort GI soft to palpation and non-tender Bimanual Exam - Vag & Uterus: uterus non-tender Uterus Palpation: uterus fundus firm (below Umbilicus) Assessment & Plan (1) Third degree laceration of perineum during delivery, : COMMENT: repaired by JV (2) Vaginal delivery: COMMENT: KW IAL 41.0 Boy PLAN: Plan s/p PPD # 1 1. routine post delivery care 2. breast feeding- support given 3. rh positive 4. rubella immune
--- NOTE | 2024-10-25 10:58 | CASEMGMT ---
Social Work Assessment Labor and Delivery Unit Patient Address: [address] [place] [address]. [place] [address] Phone number:[phone] Date of Referral: 10/25/24 Time of Referral:? 920 Referred By: Dr. Alvarez Date of Intervention: ??10/25/24 Time of Intervention:? 1019 Reason for Referral:? anxiety and depression Sw completed chart review and acknowledges social work consult due to maternal mental health history. Sw presented to bedside and introduced self to mother of baby (MOB- Gloria) and father of baby (FOB- Larry). Sw explained reason for sw involvement and completed psychosocial assessment. History obtained from: medical records, MOB and FOB. Household composition: Currently residing in the family home is MOB, FOB and baby to be included in residence when ready for discharge. Parents deny any problems or concerns with their housing, reporting it to be safe and secure. Patient's parent/guardian status:? ?FOLion reports that they have been together for 10 years after going to high school together and then eventually college. They are and this is first baby for both parents together. No concerns reported of domestic violence or intimate partner violence. Medical History: ?FLOWER is 29 year old female who is 2, para 0- now 1 following labor and delivery of . FLOWER received routine care during with [facility]. FLOWER presented to hospital on 10/24/24 in active labor. MOB delivered baby via vaginal delivery at 41 weeks gestation. Baby boy, named Simon Reed, was born weighing 7lb 4oz and had apgars of 8 and 9 at one and five minutes of life, respectfully. MOB states that she is breast feeding and baby will be followed by Dr. Best for pediatrics. Educational Status:? Both parents attended college and obtained degrees. No problems with reading, learning or comprehension. Financial Status: Both parents are gainfully employed outside of the home. FOB works at [employer] in case management. 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 Supplies: All necessary baby supplies obtained, including: car seat, safe sleep space, clothes, diapers and wipes. Childcare/Caregiver(s):? MOB will be the primary caregiver to baby along with FOB when he is not working. Transportation:?? No barriers, both parents have their drivers license and reliable means of transportation. Programs/Agencies Involved: ???Parents are not connected to any community agencies that assist them financially. MOB is connected to mental health supports and services provided through [facility]. Children Services/Legal Issues:??? No history of children services involvement. NO issues or concerns warranting referral to be made. Behavioral Health Issues: ??Mental Health History: FAUSTO denies mental health history. FLOWER reports that she has been diagnosed with anxiety and depression. FLOWER is prescribed zxoloft by her OBGYN. FLOWER reports that she can tell a difference with her mental health symptoms when she is taking her medication. FLOWER states that she recently lost her brother to suicide and this has significantly impacted her mental health. Active listening and supportive listening provided. ??? Substance Use History:?Parents deny substance use prior to and during . ? Family History:???Parents deny family history of substance use/ addiction or significant mental health diagnoses. ?? Drug Screens: No drug screens observed in chart review. Family/Social Stressors:? MOB identifies that their biggest stressor has been the loss of her brother and navigating that grief, on top of anticipating experiencing some mental health symptoms. Support Systems: FLOWER identifies that FAUSTO and her mom are her biggest support. Depression/Shaken Baby/Safe Sleeping: Sw educated parents on signs and symptoms of baby blues and depression and anxiety. MOB states that at this time she feels good, denies any problems with anxiety, depression or feeling sad or emotional. FOB states that if MOB were to struggle with her mental health he would be able to recognize that. 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 FOB states that if MOB were to struggle he would know how to help and support her. Sw educated parents on ABCs of safe sleep and shaken baby prevention. Parents express understanding. ASSESSMENT:? MOB and baby admitted following labor and delivery of . MOB with history of anxiety and depression, and also working through grief following the recent loss of her brother tragically. Parents talked about incorporating new experiences and traditions to help process their loss and replace sad memories with happier ones. FOB observed to be a strong support to MOB as MOB sat comfortably in reclining chair and nursed baby. Both parents open and receptive to talking with sw. All necessary baby supplies obtained and natural supports available to both parents. MOB is connected to mental health services and supports and is prescribed medications to help her manage her mental health symptoms. MOB aware of what to be mindful of regarding her mental health during this period. PLAN:?? No other services requested or indicated. MOB and baby to be discharged when medically ready. Parents were provided literature regarding: signs and symptoms of baby blues and mood and anxiety disorders, Help Me Grow, shaken baby prevention, ABCs of safe sleep and a list of county resources that are available for them should any needs present themselves. Micah Hathaway, LODGE OFFICER, REGIONAL RECRUITER
[2024-10-25 13:59] VITALS: BP 133/85; PULSE 122
[2024-10-25 14:00] VITALS: BP 133/85; PULSE 122; RESP 16; TEMP 36.4
== END 2024-10-25 14:50 | disposition home or self-care (01) | DRG 768 ==
PROVIDERS: Admitting Provider Advanced Practice Midwife; PCP Family Medicine; Visit Provider Advanced Practice Midwife
DX: O48.0 Post-term pregnancy (principal); Z37.0 Single live birth; O70.20 Third degree perineal laceration during delivery, unspecified; F32.A Depression, unspecified; F41.9 Anxiety disorder, unspecified; O99.344 Other mental disorders complicating childbirth; O26.843 Uterine size-date discrepancy, third trimester; O69.81X0 Labor and delivery complicated by cord around neck, without compression, not applicable or unspecified; Z3A.41 41 weeks gestation of pregnancy; Z63.4 Disappearance and death of family member; Z79.899 Other long term (current) drug therapy; Z86.16 Personal history of COVID-19
CPT/HCPCS: 59025; 59050; 80053; 84112; 85025; 86780; 86850; 86900; 86901; A4216